=== PATIENT | male | born 1975 | race Caucasian/White ===

== ENCOUNTER 2019-01-11 15:57 | Emergency (ER) | payer OTHER ==
[~2019-01-11] VITALS: Ht 176.5 cm; Wt 118.1 kg
[~2019-01-11 15:57] MED LIST: CLIN300C6 PO; HYDR-5122 PO
[2019-01-11 16:01] VITALS: BP 123/81
--- NOTE | 2019-01-11 16:09 | NUR ---
PT AMBULATED TO BED 9 WITH STEADY GAIT. ACCOMPANIED BY
--- NOTE | 2019-01-11 16:21 | NUR ---
PT C/O COUGH AND CONGESTION X2 DAYS. DENIES FEVER BUT STATES HAD CHILLS LAST NIGHT WHILE SLEEPING. PT C/O NAUSEA CAUSED BY EXCESSIVE DRY HACKING COUGH. TOOK TYLENOL 2 DAYS AGO, NO MEDS SINCE. NO VOMITING/DIARRHEA. WHEEZES HEARD IN BILATERAL LOWER LOBES. PLACED ON O2 SAT MONITOR. MEDHX: DENIES ALLERGIES: DENIES
[2019-01-11 16:35] VITALS: BP 123/81
--- NOTE | 2019-01-11 16:35 | NUR ---
Patient discharged with v/s stable. Written and verbal after care instructions given and explained. Patient alert, oriented and verbalized understanding of instructions. Ambulatory with steady gait. All questions addressed prior to discharge. ID band removed. Patient advised to follow up with PMD. Rx of augmentin and robitussin given. Patient educated on indication of medication including possible reaction and side effects. Opportunity to ask questions provided and answered. Addendum: 01/11/19 at 1636 by ANABELLE discharged by Dr Murillo
== END 2019-01-11 16:35 | disposition home or self-care (01) ==
LOC: MED 15:57
DX: J40 Bronchitis, not specified as acute or chronic (principal); F17.200 Nicotine dependence, unspecified, uncomplicated; F12.90 Cannabis use, unspecified, uncomplicated; Z79.899 Other long term (current) drug therapy
CPT/HCPCS: 99283

== ENCOUNTER 2019-05-20 00:30 | Emergency (ER) | payer OTHER ==
[~2019-05-20] VITALS: Ht 180.3 cm; Wt 108.9 kg
[2019-05-20 00:35] VITALS: BP 150/82
--- NOTE | 2019-05-20 00:38 | NUR ---
TO LOBBY A/W BED AMBULATORY
--- NOTE | 2019-05-20 01:24 | NUR ---
PT AMBULATED TO BED 5
--- NOTE | 2019-05-20 01:52 | NUR ---
ASSESSMENT COMPLETE AT THIS TIME. PATIENT SITTING UP IN BED. BED LOW AND LOCKED WITH SIDE RAIL UP. ASSESSMENT NOTE: BIB SELF WITH C/O PRESSURE IN EARS, CONGESTION, HEADACHE, AND COUGH. AAO, PERRL. LUNGS CLEAR, ABD SOFT AND NON-TENDER. STATES HE HAS BEEN FEELING SICK ON AND OFF SINCE THE START OF APRIL. NO PMH.
--- NOTE | 2019-05-20 02:35 | NUR ---
Erica brannon in [facility] - 05/20/19 at 0245 by [facility] INFLUENZA SPECIMEN COLLECTED.
[2019-05-20 02:46] VITALS: BP 142/80
--- NOTE | 2019-05-20 02:47 | NUR ---
Patient discharged with v/s stable. Written and verbal after care instructions given and explained. Patient alert, oriented and verbalized understanding of instructions. Ambulatory with steady gait. All questions addressed prior to discharge. ID band removed. Patient advised to follow up with PMD. Rx of PREDNISONE, NAPROSYN given. Patient educated on indication of medication including possible reaction and side effects. Opportunity to ask questions provided and answered.
== END 2019-05-20 02:47 | disposition home or self-care (01) ==
LOC: MED 00:30
DX: J32.9 Chronic sinusitis, unspecified (principal); Z79.899 Other long term (current) drug therapy
CPT/HCPCS: 99283

== ENCOUNTER 2021-12-19 19:38 | Emergency (ER) | payer OTHER ==
[~2021-12-19] VITALS: Ht 180.3 cm; Wt 91.6 kg
[~2021-12-19 19:38] MED LIST changes: -CLIN300C6 PO; +CLIN300C61 PO
[2021-12-19 19:56] VITALS: BP 149/99
[2021-12-19] MEDS ORDERED: AMOXIL/CLAVULANATE 875/125 MG 1 TAB PO ONE (21:25)
--- NOTE | 2021-12-19 21:40 | NUR ---
46/M C/O RIGHT WRIST PAIN S/P ACCIDENTAL DOG BITE ON FRIDAY WHILE PLAYING WITH HIS DOG. STATES PAIN WORSENING AND WHITE DISCHARGE FROM SITE TODAY, DENIES TAKING MEDS FOR PAIN, DENIES FEVERS/CHILLS.
[2021-12-19] MEDS ORDERED: AMOX1TAB8 PO (22:39)
[2021-12-19 22:51] VITALS: BP 147/74
--- NOTE | 2021-12-19 22:52 | NUR ---
Patient discharged with v/s stable. Written and verbal after care instructions given and explained. Patient alert, oriented and verbalized understanding of instructions. Ambulatory with steady gait. All questions addressed prior to discharge. ID band removed. Patient advised to follow up with PMD. Rx of AMOXICILIM/POTASSIUM CLAV given. Opportunity to ask questions provided and answered.
--- NOTE | 2021-12-19 22:53 | NUR ---
PT REFUSED WOUND CARE.
== END 2021-12-19 22:50 | disposition home or self-care (01) ==
LOC: MED 19:38
DX: S61.551A Open bite of right wrist, initial encounter (principal); Z79.899 Other long term (current) drug therapy; W54.0XXA Bitten by dog, initial encounter; Y93.89 Activity, other specified; Y92.89 Other specified places as the place of occurrence of the external cause; Y99.8 Other external cause status
CPT/HCPCS: 73100; 99283

== ENCOUNTER 2022-05-17 14:57 | Emergency (ER) | payer OTHER ==
[~2022-05-17] VITALS: Ht 177.8 cm; Wt 95.3 kg
[~2022-05-17 14:57] MED LIST changes: +AMOX1TAB8 PO
[2022-05-17 15:00] VITALS: BP 126/70
[2022-05-17] MEDS ORDERED: IBUPROFEN 600 MG TAB PO ONE (15:30)
--- NOTE | 2022-05-17 15:47 | NUR ---
called name in lobby no answer
[2022-05-17] MEDS ORDERED: IBUP-2213 PO (16:10)
--- NOTE | 2022-05-17 16:35 | NUR ---
Patient discharged with v/s stable. Written and verbal after care instructions ABOUT FINGER FRACTURE given and explained. Patient alert, oriented and verbalized understanding of instructions. Ambulatory with steady gait. All questions addressed prior to discharge. ID band removed. Patient advised to follow up with PMD. Rx of MOTRIN given. Patient educated on indication of medication including possible reaction and side effects. Opportunity to ask questions provided and answered.
== END 2022-05-17 16:35 | disposition home or self-care (01) ==
LOC: MED 14:57
DX: S62.637A Displaced fracture of distal phalanx of left little finger, initial encounter for closed fracture (principal); R03.0 Elevated blood-pressure reading, without diagnosis of hypertension; X58.XXXA Exposure to other specified factors, initial encounter; Y93.89 Activity, other specified; Y92.89 Other specified places as the place of occurrence of the external cause; Y99.8 Other external cause status
CPT/HCPCS: 73140; 99283